=== PATIENT | female | born 1995 | race Caucasian/White ===

== ENCOUNTER 2016-10-25 12:20 | Emergency (ER) | payer OTHER ==
[2016-10-25 12:28] VITALS: BP 155/80
[2016-10-25] MEDS ORDERED: Cyclobenzaprine TAB* 10 MG PO ONE (12:49)
[2016-10-25] MEDS ORDERED: Ibuprofen TAB* 600 MG PO ONE (12:49)
--- NOTE | 2016-10-25 13:14 | ED ---
Lower Extremity - HPI Summary HPI Summary: 21 female presents today complaining of right knee pain after injuring it at work around 11am today, 10/25/16. 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 She states she heard and felt a "pop". Patient describes the pain as a sharp shooting pain with movement and bearing weight. She feels burning and aching during rest. Rest and non-weight bearing gives her some relief however she does complain of muscle spasms during this time. She states the pain is about an 8.5/10 and she can not get comfortable. She is able to stand however unable to walk without pain and states "it feels like it is going to give out". She states the pain radiates down her leg with certain movement. She complains of not being able to fully straighten her knee or bend it past 30 degrees. Denies any hip or ankle pain/injury. She has had previous injury to her knees before, left partial ACL tear and right platella dislocation. She denies any other PMHx. Denies numbness, tingling, sensory/ motor deficit, chest pain, difficulty breathing and back pain. - History of Current Complaint Chief Complaint: EDExtremityLower Stated Complaint: RT KNEE INJURY Hx Obtained From: Patient Hx Last Menstrual Period: 02/10/14 Mechanism Of Injury: Twisted - right knee Onset of Pain: Immediate Onset/Duration: Hours - injury around 11am today Severity Initially: Moderate Severity Currently: Moderate Pain Intensity: 8 Pain Scale Used: 0-10 Numeric Timing: Constant Location: Is Discrete @ - right knee both medial and lateral aspects with radiation down leg upon movement or weight bearing Character Of Pain: Sharp, Aching, Spasmodic, Stiffness, Burning Associated Signs And Symptoms: Positive: Swelling, Weakness, Knee Pain. Negative: Redness, Bruising, Fever Aggravating Factor(s): Standing, Ambulation, Movement, Weight Bearing, Stairs Alleviating Factor(s): Rest Able to Bear Weight: Yes - with pain and favoring left leg Related History: Occupational Injury - Allergies/Home Medications Allergies/Adverse Reactions: Allergies Allergy/AdvReac Type Severity Reaction Status Date / Time No Known Allergies Allergy Verified 10/03/12 10:40 PMH/Surg Hx/FS Hx/Imm Hx Previously Healthy: Yes Cardiovascular History: Denies: Hx Deep Vein Thrombosis, Hx Hypertension Respiratory History: Denies: Hx Asthma Musculoskeletal History: Reports: Hx Orthopedic Injury - right knee platella dislocation, Other Musculoskeletal History - left knee partial ACL tear in past Infectious Disease History: No Infectious Disease History: Denies: Traveled Outside the [place] in Last 30 Days - Family History Known Family History: Positive: None - Social History Occupation: Employed Full-time Alcohol Use: Rare Substance Use Type: Reports: None Smoking Status (MU): Light Every Day Tobacco Smoker Amount Used/How Often: approx 8-10 per day Length of Time of Smoking/Using Tobacco: 6 yrs Have You Smoked in the Last Year: Yes Review of Systems Constitutional: Negative Eyes: Negative ENT: Negative Cardiovascular: Negative Respiratory: Negative Gastrointestinal: Negative Genitourinary: Negative Positive: Arthralgia - right knee, Myalgia, Decreased ROM - right knee, Edema - mild at right knee Skin: Negative Neurological: Negative Negative: Weakness, Numbness Psychological: Normal All Other Systems Reviewed And Are Negative: Yes Physical Exam Triage Information Reviewed: Yes Vital Signs On Initial Exam: Initial Vitals Temp Pulse Resp BP Pulse Ox 99.1 F 111 20 155/80 100 10/25/16 12:26 10/25/16 12:26 10/25/16 12:26 10/25/16 12:26 10/25/16 12:26 blood pressure and HR slightly elevated. patient is in pain. will be monitored and re-checked Vital Signs Reviewed: Yes Appearance: Positive: Well-Appearing, Well-Nourished, Pain Distress - mild Skin: Positive: Warm - cap refill <2 sec, Skin Color Reflects Adequate Perfusion , Dry Head/Face: Positive: Normal Head/Face Inspection Eyes: Positive: Normal Neck: Positive: Supple, Nontender Respiratory/Lung Sounds: Positive: Clear to Auscultation, Breath Sounds Present , Decreased Breath Sounds Cardiovascular: Positive: Normal, RRR, Pulses are Symmetrical in both Upper and Lower Extremities Musculoskeletal: Positive: Limited @ - right knee with flexion and extension due to pain, unable to straighten or bend past 30 degrees, able to bear weight however painful and unable to take steps. tender upon palpation of platella. no gross deformity or crepitus noted. platella appeared to be in place when compared to left knee. patient was very tender specific ligament tests were deferred. No pain on palpation of right ankle, foot, calf or hip. Strenght left leg 5/5 strength right leg 3/5 due to pain. Motor/sensory intact. radial patellar and achilles pulses +2. No step-off., Pain @ - right knee both medial and lateral aspects, Edema Right - very mild swelling noted on lateral aspect, no ecchymosis or erythema noted Neurological: Positive: Normal, Sensory/Motor Intact, Alert, Oriented to Person Place, Time, CN Intact II-III, Reflexes Intact Diagnostics - Vital Signs Vital Signs Temp Pulse Resp BP Pulse Ox 10/25/16 12:26 99.1 F 111 20 155/80 100 - Laboratory Lab Statement: Any lab studies that have been ordered have been reviewed, and results considered in the medical decision making process. - Radiology Right knee X-ray Xray Interpretation: No Acute Changes - NO ACUTE OSSEOUS INJURY. IF SYMPTOMS PERSIST, RECOMMEND REPEAT IMAGING. Radiology Interpretation Completed By: Radiologist Re-Evaluation - Re-Evaluation First Eval Re-Evaluation Time: 13:45 Change: Improved - pain and spasms seemed to decrease after flexeril and ibuprofen Lower Extremity Course/Dx - Course Course Of Treatment: Patient will have an X-ray of right knee as she qualifies according to [place] rules. UA was negative although she has Nexplonon as form of BC. She was given flexeril and ibuprofen to help with pain, inflammation and spasms. X-ray results were negative. Immobilizer and crutches will be applied. Patient will be sent home with pain management and referred to ortho for further imaging/evaluation. She will be off work until cleared by orthopedics. - Diagnoses Differential Diagnosis/HQI/PQRI: Positive: Arthritis, Contusion, Dislocation, Fracture (Closed), Sprain, Strain Provider Diagnoses: Sprain of right knee, Right knee injury - Physician Notifications Discussed Care of Patient With: Discussed with and evaluated by Dr Gudino Discharge - Discharge Plan Condition: Good Disposition: HOME Prescriptions: Ibuprofen TAB* [Motrin TAB* 600 MG] 600 mg PO Q8H PRN #14 tab PRN Reason: Pain Patient Education Materials: Knee Sprain (ED), Knee Immobilizer (ED) Forms: *Work Release Referrals: ROBIN Cagle [Primary Care Provider] - Khang Park MD [Medical Doctor] -
--- NOTE | 2016-10-25 13:54 | RAD ---
HISTORY: Injury, pain, right knee COMPARISONS: None VIEWS: 4, Frontal, lateral, axial, and oblique views of the right knee FINDINGS: BONE DENSITY: Normal. BONES: There is no displaced fracture. JOINTS: There is no arthropathy. There is no suprapatellar joint effusion or lipohemarthrosis. ALIGNMENT: There is no dislocation. SOFT TISSUES: Unremarkable. OTHER FINDINGS: None. IMPRESSION: NO ACUTE OSSEOUS INJURY. IF SYMPTOMS PERSIST, RECOMMEND REPEAT IMAGING.
--- NOTE | 2016-10-25 20:56 | ED ---
IJeffrey Soohyun, scribed for Oziel Gudino MD on 10/25/16 at 1414 . Progress - Progress Note Progress Note: This 21 y/o female presents to ED for right knee injury while transferring a pt in a pivot chair at her work ~ 1100 AM today. Pivot chair got stuck, and pt twisted her right knee. After the injury pt proceeded to transfer pt, which aggravated the pain. 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 Pt states that she is not ambulatory and her knee gives out when she attempts. X-ray of the right knee reveals no osseous injury. Pt was presented to me by DAWNA Monzon. I have reviewed the assessment and disposition with PA. Pt is alert and stable. She will be discharged with orthopaedist f/u, and will be sent home with pain meds, crutches, and knee brace. - Results/Orders Results/Orders: RIght Knee X-ray -- No osseous injury Re-Evaluation - Re-Evaluation First Eval Re-Evaluation Time: 13:45 Change: Improved - pain and spasms seemed to decrease after flexeril and ibuprofen Course/Dx - Course Course Of Treatment: Patient will have an X-ray of right knee as she qualifies according to [place] rules. UA was negative although she has Nexplonon as form of BC. She was given flexeril and ibuprofen to help with pain, inflammation and spasms. X-ray results were negative. Splint and crutches will be applied. Patient will be sent home with pain management and referred to ortho for further imaging/evaluation. She will be off work until cleared by orthopedics. - Diagnoses Provider Diagnoses: Sprain of right knee, Right knee injury - Provider Notifications Discussed Care Of Patient With: Discussed with and evaluated by Dr Gudino The documentation as recorded by the scribeJeffrey Soohyun accurately reflects the service I personally performed and the decisions made by me, Oziel Gudino MD.
== END 2016-10-25 14:44 | disposition home or self-care (01) ==
LOC: ED 12:20
DX: S83.91XA Sprain of unspecified site of right knee, initial encounter (principal); X50.0XXA Overexertion from strenuous movement or load, initial encounter; X50.9XXA Other and unspecified overexertion or strenuous movements or postures, initial encounter; Y93.9 Activity, unspecified; Y92.129 Unspecified place in nursing home as the place of occurrence of the external cause
CPT/HCPCS: 99282; A9270-GY